=== PATIENT | female | born 1950 | race Caucasian/White ===

== ENCOUNTER 2017-01-23 12:06 | Observation (INO) | payer BC, OTHER ==
[~2017-01-23] VITALS: Ht 165.1 cm; Wt 94.3 kg
[~2017-01-23 12:06] MED LIST: B-121000 MCG PO; BENICAR40 MG PO; BYSTOLIC5 MG PO; K-DUR 20MEQ TA20 MEQ PO; MEDROL 4MG. DOSE4 MG PO; MULTI VITAMINS1 TAB PO; OYSCO 500500 MG PO; PERCOCET 5/3251 EACH PO; PREMARIN0.9 MG OR; VERAPAMIL SR 2240 MG PO
--- NOTE | 2017-01-23 12:54 | HISTORY AND PHYSICAL REPORT ---
Demographics: Admit date: 01/23/17 Chief complaint: chest pain, palpitations PRIMARY DIAGNOSIS: unstable angina Allergies: Coded Allergies: No Known Allergies (02/19/16) History of present illness: History of present illness: 66 year old female with a history of HTN, hyperlipidemia and CAD with stent placement 03/24 presented the office with palpitations and left chest/shoulder pain that radiates down underneath aspect of her left arm. Patient states she has been having intermittent chest/shoulder pain for one week; however symptoms have been consistent since 8 AM this morning. She has noticed increased fatigue over the last week, as well. She reports symptoms occur with ambulation and at risk. Denies any specific exertional correlation. She further reports her heart has been "flipping and flopping" for a week. In the office, EKG revealed SB with some non-specific ST changes. There is also some minimal ST depression noted in lateral leads. Patient direct admitted to acute care for further evaluation. Past medical history: Family HX Diabetes No CAD No Hypertension Yes Hyperlipidemia Yes Cancer Yes TB No Immunization HX DT/Tetanus > 10 YRS Flu NEVER Pneumonia REFUSES General Angina: No CO: No Hypertension? Yes Hyperlipidemia? Yes CHF? No COPD? No Asthma? No Hernia? No CVA? No Seizures? No Diabetes? No UTI? No Stones? No GB Disease: Yes Hepatitis? No Cataracts? No Glaucoma? No MRSA? No TB? No Cancer? No Past Surgical HX Previous Surgery?Y Tubal Ligation Hysterect CHOLECYSTECTOMY LEFT CARPAL TUNNEL RELEAS Current home meds: Active Scripts Methylprednisolone (Medrol Dose Teresa) 4 MG PO UD #1 TERESA Prov: 11/02/07 Reported Medications VERAPAMIL HCL (Verapamil ER) 240 MG PO BID ESTROGENS, CONJUGATED (Premarin) 0.9 MG OR DAILY POTASSIUM CHL (Potassium Chloride) 20 MEQ PO BID CALCIUM CARBONATE (Oysco-500) 500 MG PO BID Olmesartan Medoxomil (Benicar) 40 MG PO DAILY Multiple Vitamin (Multi Vitamins) 1 TAB PO DAILY NEBIVOLOL HCL (Bystolic) 5 MG PO DAILY Cyanocobalamin (B-12) 1,000 MCG PO DAILY Oxycodone 5MG/[id number] (Oxycodone-Acetaminophen 5-325) 1 TAB PO Q4HP Social Hx: Alcohol Alcohol: No Hx of Drug Use Drug Use? No Patien't marital status is Patient's support system is good Review of systems: Constitutional No: no symptoms reported. Eyes No: no symptoms reported. Ears, Nose, Mouth, Throat No no symptoms reported Respiratory No: no symptoms reported. Cardiovascular see HPI Gastrointestinal/Abdominal No no symptoms reported Genitourinary No: no symptoms reported. Musculoskeletal No: no symptoms reported. Skin No: no symptoms reported. Neurological No: no symptoms reported. Psychiatric No: no symptoms reported. Exam: Lab data for last 24 hours: Pending Admission vital signs: See chart Exam General appearance: normal appearance, alert, awake, no acute distress Eyes: anicteric ENT: normal exam, mucous membranes moist Neck: normal inspection, non-tender, no carotid bruit, no JVD Cardiovascular: normal sinus rhythm, PMI normal, regular rate & rhythm, no murmur, normal peripheral pulses, no peripheral edema Respiratory: aerating well, clear to auscultation, chest non-tender ABD: non-distended, normal bowel sounds, no rebound, soft, no tenderness Genitourinary: no dysuria, no hematuria Extremities: moves all Musculoskeletal: equal muscle strength Skin: dry, intact Neuro: alert, intact, no deficit, normal mood/affect, oriented, speech clear Plan: Problem List 1. Unstable angina 2. Palpitations Plan: Patient direct admitted to acute care with telemetry. Serial enzymes and electrocardiograms were ordered. Will obtain echo. Cardiology consulted for evaluation at 1253
--- OUTSIDE RECORDS SUMMARY | 2017-01-23 13:08 | External Medical Summary Rpt ---
Author Author [employer] Organization [employer] Address Unknown Phone Unavailable Purpose Continuity of Care Document - through 2016
--- OUTSIDE RECORDS SUMMARY | 2017-01-23 13:08 | External Medical Summary Rpt ---
Author Author [facility] Address Unknown Phone Purpose Continuity of Care Document - 11-27-2016 through 2016
--- OUTSIDE RECORDS SUMMARY | 2017-01-23 13:08 | External Medical Summary Rpt ---
Demographics Preferred Language Bulgarian Marital Status Unknown Mosque Affiliation Unknown Race Unknown Ethnic Group Unknown Author Author [facility] Address Unknown Phone Immunization No patient found.
--- OUTSIDE RECORDS SUMMARY | 2017-01-23 13:08 | External Medical Summary Rpt ---
Demographics Preferred Language New Zealander Marital Status Unknown Sikh Affiliation Unknown Race Unknown Ethnic Group Unknown Author Author [facility] Address Unknown Phone Immunization No patient found.
--- OUTSIDE RECORDS SUMMARY | 2017-01-23 13:09 | External Medical Summary Rpt ---
Author Author [facility]ER[facility] Salvador, [employer] Organization [employer] Address Unknown Phone Unavailable Results Basic metabolic panel in Blood Observa Value Referen Units Interpr Notes Date tion ce etation Range Urea 7 - 18 mg/dL High No Nov 27 nitrogen informati 2016 [Mass/vol on in 10:44 AM ume] in source Serum or data Plasma Calcium 8.5 - mg/dL Normal No Nov 27 [Mass/vol 10.1 informati 2016 ume] in on in 10:44 AM Serum or source Plasma data Chloride 98 - 107 mmoL/L High No Nov 27 [Moles/vo informati 2016 lume] in on in 10:44 AM Serum or source Plasma data Carbon 21.0 - mmoL/L Normal No Nov 27 dioxide, 32.0 informati 2016 total on in 10:44 AM [Moles/vo source lume] in data Serum or Plasma Creatinin 0.55 - mg/dL High No Nov 27 e 1.02 informati 2016 [Mass/vol on in 10:44 AM ume] in source Serum or data Plasma Estimated 59- ML/MIN Low REFERENCE Nov 27 RANGE: 2017 glomerula >60 10:44 AM r ML/MIN/1. filtratio 73 SQUARE n rate METERSIf (GF this patient is -A merican, then multiply theresult by 1.210. Glucose 74 - 106 mg/dL Normal No Nov 27 [Mass/vol informati 2017 ume] in on in 10:44 AM Serum or source Plasma data Potassium 3.5 - 5.1 mmoL/L Normal No Nov 27 informati 2016 [Moles/vo on in 10:44 AM lume] in source Serum or data Plasma Sodium 136 - 145 mmoL/L Normal No Nov 27 [Moles/vo informati 2017 lume] in on in 10:44 AM Serum or source Plasma data Lipid 1996 panel in Serum or Plasma Observa Value Referen Units Interpr Notes Date tion ce etation Range Cholester < 200 mg/dL No No Nov 27 ol informati informati 2016 [Moles/vo on in on in 10:44 AM lume] in source source Unspecifi data data ed specimen Cholester 40 - 60 MG/DL Normal No Nov 27 ol in HDL informati 2016 on in 10:44 AM [Mass/vol source ume] in data Serum or Plasma Cholester 0 - 130 mg/dL Normal No Nov 27 ol in LDL informati 2016 on in 10:44 AM [Mass/vol source ume] in data Serum or Plasma by calculati on Triglycer 30 - 200 mg/dL Normal No Nov 27 tino informati 2016 [Moles/vo on in 10:44 AM lume] in source Serum or data Plasma Cholester 0 - 40 No Normal No Nov 27 ol in informati informati 2016 VLDL on in on in 10:44 AM [Mass/vol source source ume] in data data Serum or Plasma Hepatic function 2000 panel in Serum or Plasma Observa Value Referen Units Interpr Notes Date tion ce etation Range Albumin 3.4 - 5.0 gm/dL Normal No Nov 27 [Mass/vol informati 2016 ume] in on in 10:44 AM Serum or source Plasma data Alkaline 46 - 116 U/L High No Nov 27 phosphata informati 2016 se on in 10:44 AM [Enzymati source c data activity/ volume] in Serum or Plasma Bilirubin 0.0 - 0.2 mg/dL Normal No Nov 27 .direct informati 2017 [Mass/vol on in 10:44 AM ume] in source Serum or data Plasma Bilirubin 0 - 0.9 mg/dL Normal No Nov 27 .indirect informati 2017 on in 10:44 AM [Mass/vol source ume] in data Serum or Plasma Bilirubin 0.2 - 1.0 mg/dL Normal No Nov 27 .total informati 2017 [Mass/vol on in 10:44 AM ume] in source Serum or data Plasma Aspartate 15 - 37 U/L Low No Nov 27 informati 2016 aminotran on in 10:44 AM sferase source [Enzymati data c activity/ volume] in Serum or Plasma Alanine 12 - 78 U/L Normal No Nov 27 aminotran informati 2016 sferase on in 10:44 AM [Enzymati source c data activity/ volume] in Serum or Plasma Protein 6.4 - 8.2 gm/dL Normal No Nov 27 [Mass/vol informati 2017 ume] in on in 10:44 AM Serum or source Plasma data
--- NOTE | 2017-01-23 13:22 | CONSULT NOTE ---
Standard Demographics Patient Demo Date of Consultation: 01/23/17 Referring Provider: Jake Crenshaw MD Reason for Consultation: Chest pain, Palpitations PRIMARY DIAGNOSIS: unstable angina Problem list Problem list: 1. CAD with LAD SID, 02/2016. On DAPT. 2. HTN 3. HLD, on statin 4. Sinus bradycardia, chronic History of present illness: History of present illness: 66 year old female with a history of HTN, hyperlipidemia and CAD with stent placement 03/24 presented the office with palpitations and left chest/shoulder pain that radiates down underneath aspect of her left arm. Patient states she has been having intermittent chest/shoulder pain for one week; however symptoms have been consistent since 8 AM this morning. She has noticed increased fatigue over the last week, as well. She reports symptoms occur with ambulation and at rest. Denies any specific exertional correlation. She further reports her heart has been "flipping and flopping" for a week. In the office, EKG revealed SB with some non-specific ST changes. There is also some minimal ST depression noted in lateral leads. Patient direct admitted to acute care for further evaluation. The Above per ROSALINDA Porter. Symptoms noted above are not the same as previous angina symptoms last year. No exertional related chest discomfort. No appreciable aggravating or alleviating factors. "Just not feeling right." No lightheadedness or dizziness. No fever, chills, vomiting or diarrhea. Cardiology consulted for further evaluation. Past Medical History: General: Hypertension Yes CVA No Seizures No TB No COPD No Asthma No Diabetes No Angina No PA No Hyperlipidemia Yes Urinary No Cancer No Rheumatic H.D. No Ulcers No MRSA No GB Disease Yes Other LT DVT 10/2009 Past Surgical HX: Previous Surgery?Y Tubal Ligation Hysterect CHOLECYSTECTOMY LEFT CARPAL TUNNEL RELEAS Allergies Coded Allergies: No Known Allergies (02/19/16) Home medications: Active Scripts Methylprednisolone (Medrol Dose Bryant) 4 MG PO UD #1 BRYANT Prov: 11/02/07 Reported Medications VERAPAMIL HCL (Verapamil ER) 240 MG PO BID ESTROGENS, CONJUGATED (Premarin) 0.9 MG OR DAILY POTASSIUM CHL (Potassium Chloride) 20 MEQ PO BID CALCIUM CARBONATE (Oysco-500) 500 MG PO BID Olmesartan Medoxomil (Benicar) 40 MG PO DAILY Multiple Vitamin (Multi Vitamins) 1 TAB PO DAILY NEBIVOLOL HCL (Bystolic) 5 MG PO DAILY Cyanocobalamin (B-12) 1,000 MCG PO DAILY Oxycodone 5MG/[id number] (Oxycodone-Acetaminophen 5-325) 1 TAB PO Q4HP Current Medications: Current Medications Miscellaneous Information 1 EACH PRN PRN XX Nicotine 21 MG DAILYP PRN TD Sodium Chloride 10 ML PRN PRN IV Immunization HX DT/Tetanus > 10 YRS Flu NEVER Pneumonia REFUSES Family history Family HX Family Hx Insignificant No Diabetes No CAD No Hypertension Yes Hyperlipidemia Yes Cancer Yes TB No Social Hx: Smoking HX Tobacco No Alcohol Alcohol: No Hx of Drug Use Drug Use? No Review of systems: Constitutional malaise, weakness. Respiratory No: no symptoms reported. Cardiovascular see HPI, chest pain, palpitations Gastrointestinal/Abdominal No no symptoms reported Genitourinary No: no symptoms reported. Musculoskeletal No: no symptoms reported. Neurological No: no symptoms reported. Exam: Exam General appearance: alert, awake, no acute distress Neck: no carotid bruit, no JVD Cardiovascular: no murmur, no rub, bradycardia Respiratory: clear to auscultation, good air movement ABD: soft, no tenderness Extremities: moves all, no peripheral edema Neuro: alert, intact, oriented Plan: Assessment: 1. Chest pain with concern for unstable angina. Rule out ACS with serial cardiac enzymes. EKG in hospital is Sinus karolina at 45 bpm with NSSTTW abnormalities. 2. Palpitations, monitor on telemetry. Pt reportedly on both BB and CCB. Will clarify. 3. Sinus bradycardia, chronic and asymptomatic 4. HTN 5. HLD. on statin. 6. CAD with LAD SID, 2016, continues on DAPT. Recommendations: 1. Echo ordered. 2. Serial cardiac enzymes. 3. Clarify meds (? on both CCB and BB) and adjust accordingly (?needs both). at 1420
[2017-01-23 13:36] LABS: HEMOGLOBIN 12.1 g/dL (12.2-16.2); LYMPH # 2.4 K/mm3 (0.7-4.5); LYMPH % 34.8 % (10-50.0)
[2017-01-23 14:23] LABS: BUN 18 mg/dL (7-18)
[2017-01-23 14:34] LABS: GFR (ESTIMATED) 41 ML/MIN (59-)
[2017-01-23 15:07] VITALS: BP 152/77
--- NOTE | 2017-01-23 15:23 | RADIOLOGY REPORT PS360 ---
CHEST(2 VIEWS-NOT PORTABLE) HISTORY: CHEST PAIN ORDERING PHYSICIAN: Jake Crenshaw MD PATIENT AGE: 66 years COMPARISON: None available FINDINGS: There is mild cardiomegaly without failure. Atelectasis or infiltrate within the lingula noted. The remaining lungs are clear. There are small bilateral effusions. No acute bony anomalies. IMPRESSION: 1. Cardiomegaly without failure with small bilateral effusions. 2. Patchy atelectasis or infiltrate within the lingula
[2017-01-23] MEDS ORDERED: ASPIRIN 81MG TA81 MG PO (16:25)
[2017-01-23] MEDS ORDERED: LIPITOR20 MG PO (16:26)
[2017-01-23] MEDS ORDERED: NITROGLYCERIN0.4 MG SL (16:27)
[2017-01-23] MEDS ORDERED: CARDURA2 M1 PO (16:27)
[2017-01-23] MEDS ORDERED: EFFIENT10 M2 PO (16:28)
[2017-01-23 16:39] VITALS: BP 142/78
[2017-01-23 18:18] VITALS: BP 142/78
[2017-01-23 19:47] VITALS: BP 189/86
[2017-01-24] VITALS (7 sets, daily range): BP systolic 144–190; BP diastolic 67–84
--- NOTE | 2017-01-24 07:26 | ACUTE CARE PROGRESS NOTE (QUA) ---
Progress Notes Subjective Date 01/24/17 Time 0725 Note Overall patient did well overnight. He continued to have some chest pain when she moved around a little bit. Lungs are clear, heart rate regular, in the high 40s when sleeping. When awakes goes 60s. No murmurs. Abdomen soft and nontender. No edema. Objective Findings Last VS-Temp:98.0 B/P:155/67 Pulse:102 Resp:16 SaO2:100 ROOM AIR Last weight lbs:208 oz:0 K.348 Method:Floor Scales Assessment/Plan Problem List 1. Unstable angina 2. Palpitations Patient condition Improving Plan: continue current care, check stress test. This inpt stay is expected to cross 2 MNs from start of care No at 0760
--- NOTE | 2017-01-24 08:20 | ACUTE CARE PROGRESS NOTE (QUA) ---
Progress Notes Subjective Date 01/24/17 Time 0816 Note 66 yo WF in bed in NAD. Some chest pain overnight noted about the time of elevated BP. Resolved after dose of lisinopril. Troponins normal X 3. Objective Findings Last VS-Temp:98.0 B/P:169/68 Pulse:49 Resp:17 SaO2:95 ROOM AIR Last weight lbs:208 oz:0 K.348 Method:Floor Scales Exam General appearance: alert, awake, no acute distress Cardiovascular: bradycardia Respiratory: clear to auscultation Reviewed: medications, vital signs, lab results Assessment/Plan Problem List 1. Unstable angina 2. Palpitations Patient condition Stable Plan: Lexiscan myoview today and if normal then ok for discharge home from cardiology standpoint. Pt is not on beta heidi. She is only taking verapamil and benicar for HR/BP. This inpt stay is expected to cross 2 MNs from start of care No at 0819
--- NOTE | 2017-01-24 10:35 | PHARMACY CLINIC NOTE ---
Patient Demographics Patient Demographics Admission date: 01/23/17 Date: 01/24/17 Time: 1035 Allergies Coded Allergies: No Known Allergies (02/19/16) HEIGHT- FT: 5 IN: 5.00 K.348 VTE General Information Labs: Laboratory Tests 01/23 1325 Hematology Hgb (12.2 - 16.2 g/dL) 12.1 L Hct (37.0 - 47.0 %) 34.6 L Plt Count (142 - 424 K/mm3) 269 Disclaimer The following section includes nursing documentation that has been pulled in for pharmacy review. Patient's VTE score: 1 Patient's VTE Risk: VERY LOW RISK Clinical trial participant? No VTE prophylaxis [facility] 0371 VTE prophylaxis ordered? Yes Type of prophylaxis/treatment: MARY at 1036
--- NOTE | 2017-01-24 10:35 | PHARMACY CLINIC NOTE ---
Patient Demographics Patient Demographics Admission date: 01/23/17 Date: 01/24/17 Time: 1035 Allergies Coded Allergies: No Known Allergies (02/19/16) HEIGHT- FT: 5 IN: 5.00 K.348 VTE General Information Labs: Laboratory Tests 01/23 1325 Hematology Hgb (12.2 - 16.2 g/dL) 12.1 L Hct (37.0 - 47.0 %) 34.6 L Plt Count (142 - 424 K/mm3) 269 Disclaimer The following section includes nursing documentation that has been pulled in for pharmacy review. Patient's VTE score: 1 Patient's VTE Risk: VERY LOW RISK Clinical trial participant? No VTE prophylaxis [facility] 0371 VTE prophylaxis ordered? Yes Type of prophylaxis/treatment: MARY at 1038
--- NOTE | 2017-01-24 15:15 | RADIOLOGY REPORT PS360 ---
NUC SPECT CARDIOLITE PHARMACOL CLINICAL INDICATION: CHEST PAIN ORDERING PHYSICIAN: Jake Crenshaw MD PATIENT AGE: 66 years COMPARISON: 02/19/2016 DOSE: 11.06 mCi technetium Myoview intravenously at rest followed by 32.3 mCi technetium 99m Myoview following the intravenous administration of 0.4 mg of Lexiscan. Resting blood pressure is 188/84. Stress blood pressure 176/78. FINDINGS: Ejection fraction is calculated to be 62%. SPECT and polar map images reviewed. There has been interval development of a small fixed defect within the inferior wall towards the apex. No reversible defects are evident. IMPRESSION: 1. Normal ejection fraction. 2. Interval development of a small fixed defect within the inferior wall towards the apex consistent with an area of infarction. No reversible defects evident
[2017-01-24] MEDS ORDERED: IMDUR 30MG. TAB30 MG PO (17:02)
--- NOTE | 2017-01-24 17:44 | DISCHARGE SUMMARY STANDARD ---
Demographics Admit date: 01/23/17 Discharge date: 01/24/17 History of present illness History of present illness 66 year old female with a history of HTN, hyperlipidemia and CAD with stent placement 03/24 presented the office with palpitations and left chest/shoulder pain that radiates down underneath aspect of her left arm. Patient states she has been having intermittent chest/shoulder pain for one week; however symptoms have been consistent since 8 AM this morning. She has noticed increased fatigue over the last week, as well. She reports symptoms occur with ambulation and at rest. Denies any specific exertional correlation. She further reports her heart has been "flipping and flopping" for a week. In the office, EKG revealed SB with some non-specific ST changes. There is also some minimal ST depression noted in lateral leads. Patient direct admitted to acute care for further evaluation. Symptoms noted above are not the same as previous angina symptoms last year. No exertional related chest discomfort. No appreciable aggravating or alleviating factors. "Just not feeling right." No lightheadedness or dizziness. No fever, chills, vomiting or diarrhea. Cardiology consulted for further evaluation. Hospital Course Hospital Course: Patient was admitted, ruled out for [place]. Did well overnight. Nuclear stress test and was done showing a new area of nonreversible ischemia. Patient did have hypertensive blood pressure in the hospital with bradycardic pulse rates, currently on verapamil but responded well to Imdur. Plan will be to discharge home today with 30 mg b.i.d. Imdur. We will closely follow her in 2 days to assess whether or not left heart catheterization is indicated. Discharge diagnoses Problem List 1. Unstable angina 2. Palpitations Medications Medications: Discharge meds are as noted. Follow up Follow up in office in: 2 DAYS with: Jake Crenshaw MD at [id number]
== END 2017-01-24 17:30 | disposition home or self-care (01) ==
LOC: 2ND 12:06 → ICU 12:06
PROVIDERS: Internal Medicine Adolescent Medicine
DX: I25.110 Atherosclerotic heart disease of native coronary artery with unstable angina pectoris (principal); I10 Essential (primary) hypertension; Z95.5 Presence of coronary angioplasty implant and graft
CPT/HCPCS: G0378

== ENCOUNTER → 2017-03-25 | Outpatient (CLI) | payer BC, OTHER ==
[~2017-03-25] MED LIST changes: +ASPIRIN 81MG TA81 MG PO; +CARDURA2 M1 PO; +EFFIENT10 M2 PO; +IMDUR 30MG. TAB30 MG PO; +LIPITOR20 MG PO; +NITROGLYCERIN0.4 MG SL
--- NOTE | 2017-03-28 10:13 | RADIOLOGY REPORT PS360 ---
DIG MAMM-SCREEN MAGDIEL W/CAD CAD Screening ORDERING PHYSICIAN : Emiliano Austin MD PATIENT AGE: 66 years GENDER: Female COMPARISON: Previous mammograms: February 2016... And January 2014, & 2014 & 2012 INDICATION: Routine screening . No new complaints. Ovaries removed 1983 Patient Stopped Premarin March 2016. Family history. Maternal aunt with breast cancer TECHNIQUE: Standard CC and MLO images were obtained. R2 CAD reviewed. Additional axillary cc view both breast and nipple profile MLO view left breast also submitted FINDINGS: Fairly Low-density breast bilaterally with no dominant mass nor suspicious calcifications nor significant architectural distortion. Prior films helpful in supporting stability Suggestion subtle regression of glandular elements bilaterally with patient off Premarin RIGHT BREAST:. No significant new findings Area of minimal density unchanged since last years exam is been seen on prior studies LEFT BREAST: No new areas of concern. Overall stable appearance. IMPRESSION: No significant new findings. Stable breast only noting slight regression of glandular elements with patient now on hormone No malignancy evident radiographically Bilateral follow-up in one year recommended BI-RADS CATEGORY: 2_Benign RECOMMENDED FOLLOWUP: 12M 12 MONTH FOLLOW-UP (A letter has been sent to the patient regarding results of the study.)
== END ==
LOC: RAD 10:07
DX: Z12.31 Encounter for screening mammogram for malignant neoplasm of breast (principal)
CPT/HCPCS: G0202

== ENCOUNTER → 2017-04-04 | Outpatient (CLI) | payer BC, OTHER ==
--- NOTE | 2017-04-04 14:58 | RADIOLOGY REPORT PS360 ---
BONE DENSITOMETRY(HIP:LT SPINE HISTORY: POST MENOPAUSAL ORDERING PHYSICIAN: Emiliano Austin MD PATIENT AGE: 66 years COMPARISON: [id number] FINDINGS: The BMD measured at the right femoral neck is 0.849 g/cm squared with a T score of -1.4. This is considered Osteopenic according to the World Health Organization criteria. Fracture risk is Moderate. Treatment is advised. IMPRESSION: Osteopenia. The mean density of the hips has decreased by nearly 8% and the density lumbar spine is decreased by 3% compared to the previous exam Recommend follow-up exam March 2019
--- NOTE | 2017-04-04 14:58 | RADIOLOGY REPORT PS360 ---
BONE DENSITOMETRY(HIP:LT SPINE HISTORY: POST MENOPAUSAL ORDERING PHYSICIAN: Emiliano Austin MD PATIENT AGE: 66 years COMPARISON: 1658 FINDINGS: The BMD measured at the right femoral neck is 0.849 g/cm squared with a T score of -1.4. This is considered Osteopenic according to the World Health Organization criteria. Fracture risk is Moderate. Treatment is advised. IMPRESSION: Osteopenia. The mean density of the hips has decreased by nearly 8% and the density lumbar spine is decreased by 3% compared to the previous exam Recommend follow-up exam March 2019
== END ==
LOC: RAD 12:28
DX: Z78.0 Asymptomatic menopausal state (principal); Z13.820 Encounter for screening for osteoporosis